=== PATIENT | female | born 1995 | race Caucasian/White ===

== ENCOUNTER 2019-05-22 17:30 | Emergency (ER) | payer SELFPAY ==
[2019-05-22 17:45] VITALS: BP 120/69
--- NOTE | 2019-05-22 19:19 | ER Document Report ---
ED Medical Screen (RME) - General Chief Complaint: Abdominal Pain Stated Complaint: LEFT SIDE/ABDOMINAL PAIN Time Seen by Provider: 05/22/19 19:09 - HPI Notes: 05/22/19 19:15 Patient is a 23-year-old female no significant past medical history who presents complaining of left lower pelvic pain that began over the past couple days and has been intermittent described as sharp. Patient states that she does have associated nausea with a couple episodes of vomiting. Patient states that she has had some bilateral flank pain. She is otherwise urinating normally and having normal bowel movements. No vaginal bleeding, odor, or discharge. No surgical history to her abdomen. Denies KELLEY, fever, neck pain, URI, CP, SOB, dysuria, or rash. I have treated and performed a rapid initial assessment of this patient. A comprehensive ED assessment and evaluation of the patient, analysis of test results and completion of medical decision making process will be conducted by additional ED providers. PHYSICAL EXAMINATION: GENERAL: Well-appearing, well-nourished and in no acute distress. A&Ox4. Answers questions appropriately. LUNGS: Breath sounds clear to auscultation bilaterally and equal. No wheezes rales or rhonchi. HEART: Regular rate and rhythm without murmurs, rubs, gallops. ABDOMEN: Soft, nondistended abdomen. No guarding, no rebound. Normal bowel sounds present. + left lower pelvic tenderness (cannot elicit thorough abd exam w/o bed, however). - Related Data Allergies/Adverse Reactions: No Known Allergies Allergy (Unverified 05/22/19 17:32) Past Medical History - Social History Chew tobacco use (# tins/day): No Frequency of alcohol use: None Drug Abuse: None Renal/ Medical History: Denies: Hx Peritoneal Dialysis Physical Exam - Vital signs Vitals: Temp Pulse Resp BP Pulse Ox 98.4 F 90 20 120/69 100 05/22/19 17:44 05/22/19 17:44 05/22/19 17:44 05/22/19 17:44 05/22/19 17:44 Course - Vital Signs Vital signs: Temp Pulse Resp BP Pulse Ox 98.4 F 90 20 120/69 100 05/22/19 17:44 05/22/19 17:44 05/22/19 17:44 05/22/19 17:44 05/22/19 17:44
[2019-05-22] MEDS ORDERED: ONDANSETRON 4 MG TAB.RAPDIS PO ONE (19:20)
== END 2019-05-22 21:00 | disposition left against medical advice (07) ==
LOC: ER 17:30
DX: Z53.21 Procedure and treatment not carried out due to patient leaving prior to being seen by health care provider (principal); R10.9 Unspecified abdominal pain; R10.2 Pelvic and perineal pain; R11.2 Nausea with vomiting, unspecified
CPT/HCPCS: 99281

== ENCOUNTER 2020-08-30 22:53 | Emergency (ER) | payer OTHER ==
--- NOTE | 2020-08-31 01:04 | ER Document Report ---
ED Medical Screen (RME) - General Chief Complaint: Abdominal Cramping Stated Complaint: CRAMPING/15 WEEKS Notes: Patient is a 24-year-old white female who is G2, P1 approximately 15 weeks gestation who presents to the emergency department I with a chief complaint of cramping in the abdomen. She states has been under immense amount of stress lately. She states over the past week she is not felt the baby move very much. She states recently she started having some bilateral cramping in the flanks. She states that she is not noticed any vaginal bleeding but that it "smells like it". States that it sounds like she is on her period. Denies any vaginal discharge clots or tissue. No urinary complaints. No back pain. No chest pain or shortness of breath. No lower extremity swelling. No fevers chills or night sweats. [facility] [place] and has had normal care up to this point. I have treated and performed a rapid initial assessment of this patient. A comprehensive ED assessment and evaluation of the patient, analysis of test results and completion of medical decision making process will be conducted by additional ED providers. PHYSICAL EXAMINATION: GENERAL: Well-appearing, well-nourished and in no acute distress. A&Ox4. Answers questions appropriately. - Related Data Allergies/Adverse Reactions: No Known Allergies Allergy (Verified 08/31/20 01:01) Past Medical History Renal/ Medical History: Denies: Hx Peritoneal Dialysis Physical Exam - Vital signs Vitals: Temp Pulse Resp BP Pulse Ox 98.2 F 101 H 18 105/84 100 08/30/20 22:58 08/30/20 22:58 08/30/20 22:58 08/30/20 22:58 08/30/20 22:58 Course - Vital Signs Vital signs: Temp Pulse Resp BP Pulse Ox 98.2 F 101 H 18 105/84 100 08/30/20 22:58 08/30/20 22:58 08/30/20 22:58 08/30/20 22:58 08/30/20 22:58
[2020-08-31 01:33] LABS: APPEARANCE,URINE CLEAR; BILIRUBIN,URINE NEGATIVE (NEGATIVE); COLOR,URINE YELLOW; GLUCOSE, URINE NEGATIVE (NEGATIVE); KETONES,URINE NEGATIVE (NEGATIVE); PROTEIN,URINE NEGATIVE (NEGATIVE); URINE SPECIFIC GRAVITY 1.026
[2020-08-31 01:41] LABS: ABSOLUTE EOSINOPHILS # (AUTO) 0.2 10^3/uL (0.0-0.6); ABSOLUTE LYMPHOCYTES (AUTO) 3.4 10^3/uL (0.5-4.7); ABSOLUTE MONOCYTES (AUTO) 0.8 10^3/uL (0.1-1.4); ABSOLUTE NEUT (AUTO) 6.2 10^3/uL (1.7-8.2); BASOPHILS % (AUTO) 0.5 % (0-2); EOSINOPHILS % (AUTO) 2.3 % (0-6); HEMATOCRIT 37.4 % (36.0-47.0); HEMOGLOBIN 13.4 g/dL (12.0-15.5); LYMPHOCYTES % (AUTO) 31.6 % (13-45); MEAN CORPUSCULAR HEMOGLOBIN 32.5 pg (27.0-33.4); MEAN CORPUSCULAR HGB CONC 35.8 g/dL (32.0-36.0); MEAN CORPUSCULAR VOLUME 91 fl (80-97); MONOCYTES % (AUTO) 7.3 % (3-13); PLATELET COUNT 185 10^3/uL (150-450); RED BLOOD COUNT 4.12 10^6/uL (3.72-5.28); SEGMENTED NEUTROPHILS % (AUTO) 58.3 % (42-78); TOTAL CELLS COUNTED % (AUTO) 100 %; WHITE BLOOD COUNT 10.7 10^3/uL (4.0-10.5)
[2020-08-31 01:42] LABS: ALBUMIN 3.9 g/dL (3.5-5.0); ALKALINE PHOSPHATASE 47 U/L (38-126); ANION GAP 9 (5-19); ASPARTATE AMINO TRANSFERASE 24 U/L (14-36); BILIRUBIN,DIRECT 0.1 mg/dL (0.0-0.4); BILIRUBIN,TOTAL 0.6 mg/dL (0.2-1.3); BLOOD UREA NITROGEN 14 mg/dL (7-20); CALCIUM 9.2 mg/dL (8.4-10.2); CARBON DIOXIDE 26 mmol/L (22-30); CHLORIDE 102 mmol/L (98-107); GLUCOSE 82 mg/dL (75-110); TOTAL PROTEIN 6.6 g/dL (6.3-8.2)
--- NOTE | 2020-08-31 02:04 | RADIOLOGY REPORT (SQ) ---
EXAM: Ultrasound limited CLINICAL DATA: 24-year-old female with 15 week , pain and cramping. TECHNICAL DATA: Transabdominal ultrasound imaging was performed through the gravid uterus. This study was performed on 08/31/2020 at 1:26 AM COMPARISON: None. FINDINGS: ANATOMIC EVALUATION FETUS single POSITION Vertex (variable) HEART RATE 160 bpm AMNIOTIC FLUID largest vertical pocket 3.7 cm PLACENTA LOCATION anterior PREVIA none MEASUREMENTS BPD: 3.24 cm corresponding to 16 weeks, 1 days. HC: 11.8 cm corresponding to 15 weeks, 6 days. AC: 10.17 cm corresponding to 16 weeks, 1 days. FL: 1.52 cm corresponding to 14 weeks, 3 days. CER: 2.7 cm, closed FL/AC: 14.9 FL/BPD: 46.9 HC/AC: 1.16 CI: 86.1 CLINICAL DATES LMP 05/14/2020 [place] 15 weeks, four days EDC 02/18/20[address]ATED DATES BY ULTR[address]OUND [address] [place] 15 weeks, five days EDC 02/17/2021 IMPRESSION: 1. Single living intrauterine with an estimated ultrasound age of 15 weeks, 5 days with an estimated due date of 02/17/2021. This corresponds to within one day of the expected clinical gestational age. 2. The placenta is anterior in location without evidence of placenta previa. 3. The amniotic fluid index is within normal limits. 4. The anatomic ratios are within normal limits.. 5. No immediate complications are identified on this examination.
[2020-08-31 03:05] VITALS: BP 108/63
--- NOTE | 2020-08-31 05:47 | ER Document Report ---
ED General - General Chief Complaint: Abdominal Pain Stated Complaint: CRAMPING/15 WEEKS Notes: 24-year-old female G2, P1 approximately 15 weeks gestational age presents with approximately 1 day of intermittent cramping bilateral lower abdominal pain. Patient says she has been under extreme stress because her daughter's father is trying to take custody away from her. Patient says she feels cramping when she moves and lasts for few seconds and then resolves. Patient has had intermittent infrequent vomiting throughout her which is not any worse now and she is tolerating p.o. Patient has been getting OB care with any complications this . Patient denies any fever, bowel symptoms, urinary symptoms, vaginal discharge. Patient says that she has not seen any vaginal bleeding but states she has smelled blood. - Related Data Allergies/Adverse Reactions: No Known Allergies Allergy (Verified 08/31/20 01:01) Home Medications: PRE-NATALS Past Medical History - General Information source: Patient - Social History Smoking Status: Never Smoker Frequency of alcohol use: None Drug Abuse: None Family History: Reviewed & Not Pertinent Renal/ Medical History: Denies: Hx Peritoneal Dialysis Review of Systems - Review of Systems Notes: REVIEW OF SYSTEMS: CONSTITUTIONAL : Denies fever, chills, or sweats. EENT: Denies recent cold/sinus symptoms, denies throat pain CARDIOVASCULAR: Denies chest pain, [place] RESPIRATORY: Denies cough, denies shortness of breath. GASTROINTESTINAL: + abdominal pain, nausea/vomiting. GENITOURINARY: Denies difficulty urinating, painful urination. FEMALE GENITOURINARY: Denies abnormal vaginal bleeding, vaginal discharge. MUSCULOSKELETAL: Denies neck pain, back pain. SKIN: Denies rash or skin lesions. HEMATOLOGIC : Denies easy bruising or bleeding. LYMPHATIC: Denies swollen, enlarged glands. NEUROLOGICAL: Denies headache, denies change in gait. PSYCHIATRIC: Denies anxiety or stress or depression. Physical Exam - Vital signs Vitals: Temp Pulse Resp BP Pulse Ox 98.2 F 101 H 18 105/84 100 08/30/20 22:58 08/30/20 22:58 08/30/20 22:58 08/30/20 22:58 08/30/20 22:58 - Notes Notes: PHYSICAL EXAMINATION: GENERAL: Well-appearing, well-nourished and in no acute distress. HEAD: Atraumatic, normocephalic. EYES: Pupils equal round and appropriate constriction, sclera anicteric, conjunctiva are normal. ENT: nares patent, moist mucous membranes. NECK: Normal range of motion, supple without lymphadenopathy LUNGS: Breath sounds clear to auscultation bilaterally and equal. No wheezes rales or rhonchi. HEART: Regular rate and rhythm without murmurs ABDOMEN: Soft, nontender, palpable uterus below the umbilicus, no guarding, no rebound, no CVA tenderness PELVIC: No blood in vault, no discharge, os closed, no CMT, no adnexal tenderness or masses EXTREMITIES: Normal range of motion, no pitting or edema. No cyanosis. NEUROLOGICAL: Awake, alert, conversing appropriately, moves all extremities spontaneously. PSYCH: Normal mood, normal affect. SKIN: Warm, Dry, normal turgor, no rashes or lesions noted. Exam chaperoned by SHYAM Powers. Course - Re-evaluation Re-evalutation: 08/31/20 05:45 Patient with 1 day of intermittent cramping discomfort that has now mostly resolved although slight symptoms return when she moves around a lot. Symptoms consistent with uterine cramping, mild symptoms with completely benign abdominal exam and no sign of alternate emergent etiologies such as appendicitis or cholecystitis. Likely secondary to stress, mild dehydration, or combination of both. Borderline leukocytosis not clinically meaningful in absence of any signs of infection, OB ultrasound shows live , patient will need follow-up with OB for no indication for emergent OB consultation at this time. Patient has close follow-up and will call the office today during business hours to get prompt appointment. No blood on vaginal exam so no indication for RhoGam. Patient ready for discharge. I gave patient extensive return to ED precautions which she demonstrated understanding of. - Vital Signs Vital signs: Temp Pulse Resp BP Pulse Ox 98.2 F 92 18 108/63 100 08/31/20 03:04 08/31/20 03:04 08/30/20 22:58 08/31/20 03:04 08/31/20 03:04 - Laboratory Result Diagrams: 08/31/20 01:18 08/31/20 01:18 Laboratory results interpreted by me: 08/31/20 08/31/20 08/31/20 01:18 01:18 01:18 WBC 10.7 H Sodium 136.9 L Beta HCG, Quant 19336.00 H Urine Urobilinogen 4.0 H Discharge - Discharge Clinical Impression: Abdominal pain affecting Disposition: HOME, SELF-CARE Additional Instructions: Increase your water intake and follow-up with your build technician within 1 week. If you have any worsening symptoms such as increased vomiting, worsening pain, fever, black or bloody stool, inability to pass stool, pain or difficulty urinating, vaginal discharge, vaginal bleeding, or any other worsening or alarming symptoms return to the emergency department immediately.
== END 2020-08-31 06:03 | disposition home or self-care (01) ==
LOC: ER 22:53
DX: O26.892 Other specified pregnancy related conditions, second trimester (principal); R10.30 Lower abdominal pain, unspecified; O21.9 Vomiting of pregnancy, unspecified; Z63.79 Other stressful life events affecting family and household; Z79.899 Other long term (current) drug therapy; Z3A.15 15 weeks gestation of pregnancy
CPT/HCPCS: 36415; 76815; 80053; 81001; 83690; 84702; 85025; 99284

== ENCOUNTER 2020-11-09 20:34 | Outpatient (CLI) | payer OTHER ==
[2020-11-09 21:25] LABS: APPEARANCE,URINE SLIGHTLY-CLOUDY; BILIRUBIN,URINE NEGATIVE (NEGATIVE); COLOR,URINE YELLOW; GLUCOSE, URINE NEGATIVE (NEGATIVE); KETONES,URINE NEGATIVE (NEGATIVE); LEUKOCYTE ESTERASE,URINE SMALL (NEGATIVE); NITRITE,URINE NEGATIVE (NEGATIVE); PROTEIN,URINE 30 mg/dL (NEGATIVE); URINE SPECIFIC GRAVITY 1.026; UROBILINOGEN,URINE NEGATIVE mg/dL (<2.0)
[2020-11-09 21:41] LABS: URINE AMPHETAMINES SCREEN NEGATIVE; URINE BARBITURATES SCREEN NEGATIVE; URINE BENZODIAZEPINES SCREEN NEGATIVE; URINE COCAINE SCREEN NEGATIVE; URINE MARIJUANA (THC) SCREEN NEGATIVE; URINE METHADONE SCREEN NEGATIVE; URINE PHENCYCLIDINE SCREEN NEGATIVE
== END 2020-11-09 22:05 | disposition home or self-care (01) ==
LOC: LC 20:34
PROVIDERS: ATTEND Obstetrics & Gynecology Gynecology
DX: O36.8320 Maternal care for abnormalities of the fetal heart rate or rhythm, second trimester, not applicable or unspecified (principal); Z3A.25 25 weeks gestation of pregnancy
CPT/HCPCS: 59899; 81001; 80307; Q0114